=== PATIENT | male | born 1990 | race African-American/Black ===

== ENCOUNTER → 2019-01-11 | Emergency (ER) | payer MEDICAID ==
[~2019-01-11] VITALS: Ht 170.2 cm; Wt 100.0 kg
[2019-01-11 22:46] VITALS: Ht 170.2 cm; Wt 100.0 kg
--- NOTE | 2019-01-11 23:11 | ERD ---
ER Documentation Chief Complaint Chief Complaint states suicidal ideations HPI The patient is a 28-year-old male, presenting to the because of acute suicidal ideation, he does not have any plan. He was admitted to psychiatric hospital about a month ago, has not been taking his psychotropic medication for the last 2 weeks. He denies headache, auditory/visual hallucination, homicidal ideation, headache, neck pain, chest pain, dyspnea, abdominal pain, vomiting, dysuria, diarrhea. He smokes and drinks and does illicit drug amphetamine, he is homeless Past medical history: Schizophrenia, bipolar Past surgical history: None ROS All systems reviewed and are negative except as per history of present illness. Allergies Allergies: Coded Allergies: No Known Drug Allergies (Verified Allergy, Unknown, 01/11/19) Physical Exam Vitals Vital Signs Date Temp Pulse Resp B/P (MAP) Pulse Ox O2 O2 Flow FiO2 Time Delivery Rate 01/11/19 97.1 102 20 136/62 98 22:46 (86) Physical Exam Const: No acute distress. Unkempt Head: Atraumatic. Eyes: Normal Conjunctiva. ENT: Normal External Ears, Nose and Mouth. Neck: Full range of motion. No meningismus. Resp: Clear to auscultation bilaterally. Cardio: Regular rate and rhythm. Abd: Soft, non distended, normal bowel sounds, non tender. Skin: No petechiae or rashes. Back: No midline or flank tenderness. Ext: No cyanosis, or edema. Neur: Awake and alert. No focal deficit Psych: Suicidal Results 24 hrs Laboratory Tests Test 01/11/19 23:21 White Blood Count Pending Red Blood Count Pending Hemoglobin Pending Hematocrit Pending Mean Corpuscular Volume Pending Mean Corpuscular Hemoglobin Pending Mean Corpuscular Hemoglobin Concent Pending Red Cell Distribution Width Pending Platelet Count Pending Mean Platelet Volume Pending Procedures/MDM MEDICAL MAKING DECISION: The patient is a 28-year-old male, presenting with acute suicidal ideation The differential diagnoses considered include but are not limited to drug- induced psychosis, psychosis, medical noncompliance, decompensated psychiatric illness Departure Diagnosis: Primary Impression: Suicidal ideation Additional Impression: Substance abuse Condition: Stable Comments Labs are pending He is awaiting to be seen by telepsychiatrist SIERRA STEWART MD Jan 11, 2019 23:11
--- NOTE | 2019-01-12 00:50 | PSY ---
Date/Time of Note Date/Time of Note DATE: 01/12/19 TIME: 00:22 Psychiatric Subjective Eval Consent Pt consented to telemedicine: Yes Subjective Evaluation Patient location: emergency Chief Complaint: states suicidal ideations History of present illness He stated he hasn't taken any medications for two weeks and is hearing voices which he cannot make out. He also complained of racing thoughts. He stated his mood is "elevated and sometimes low" and complained of low energy. He reported a reasonable appetite. He is able to sleep OK at night. He reported he has thoughts about suicide "off and on" including earlier today when he had thoughts of "giving myself an injection." He stated he thought about using a syringe to inject motor oil into his veins. He denied any violent thoughts or urges. Past psychiatric history Stated he took Strattera and lithium and Seroquel 400mg qhs. He was admitted one month ago and was discharged on these medications but couldn't fill the prescription. Hospitalization: Suicidal Attempt(s) ("I think I tried to hang myself a month ago. I'm not too sure." ) Family History Schizophrenia - father. Medical history Problems Medical Problems: (1) Substance abuse Status: Acute (2) Suicidal ideation Status: Acute Allergies: Coded Allergies: No Known Drug Allergies (Verified Allergy, Unknown, 01/11/19) Substance Abuse Substance use: other (mAMP "I think yesterday." Marijuana earlier today. ) Substance abuse history: Yes Prior substance abuse treatmen: No Social History Marital status: single (000) DPA/Conservatorship: No Occupation/Intermediate: [employer] Psychiatric Objective Eval Mental Status Examination: Appearance: Disheveled Eye Contact: Fair Psychomotor Activity: Normal Behavior: Cooperative Speech: Clear, Soft AFFECT: Blunt Mood: Depressed Though Process: Linear Thought Content: Hallucinations Suicidal: Yes Homicidal: No On 72 hour hold: No Orientation: x3 Cognition: Alert Insight: Intact Judgement: Intact Attention Span: Intact Laboratory Results Laboratory Tests Test 01/11/19 23:21 01/11/19 23:22 White Blood Count 5.3 10^3/ul Red Blood Count 5.20 10^6/ul Hemoglobin 13.5 g/dl Hematocrit 42.5 % Mean Corpuscular Volume 81.7 fl Mean Corpuscular Hemoglobin 26.0 pg Mean Corpuscular Hemoglobin Concent 31.8 g/dl Red Cell Distribution Width 15.4 % Platelet Count 428 10^3/UL Mean Platelet Volume 9.7 fl Immature Granulocytes % 0.200 % Neutrophils % 43.4 % Lymphocytes % 36.7 % Monocytes % 16.3 % Eosinophils % 2.8 % Basophils % 0.6 % Nucleated Red Blood Cells % 0.0 /100WBC Immature Granulocytes # 0.010 10^3/ul Neutrophils # 2.3 10^3/ul Lymphocytes # 2.0 10^3/ul Monocytes # 0.9 10^3/ul Eosinophils # 0.2 10^3/ul Basophils # 0.0 10^3/ul Nucleated Red Blood Cells # 0.0 10^3/ul Urine Opiates Screen Negative Urine Barbiturates Negative Urine Amphetamines Screen POSITIVE Urine Benzodiazepines Screen Negative Urine Cocaine Screen Negative Urine Cannabinoids Negative Urine Color YELLOW Urine Clarity SLIGHTLY CLOUDY Urine pH 6.0 Urine Specific [place] 1.026 Urine Ketones TRACE mg/dL Urine Nitrite NEGATIVE mg/dL Urine Bilirubin NEGATIVE mg/dL Urine Urobilinogen 1+ mg/dL Urine Leukocyte Esterase NEGATIVE Michelle/ul Urine Microscopic RBC 1 /HPF Urine Microscopic WBC 3 /HPF Urine Mucus MODERATE /HPF Urine Hemoglobin NEGATIVE mg/dL Urine Glucose NEGATIVE mg/dL Urine Total Protein 1+ mg/dl Sodium Level 141 mmol/L Potassium Level 3.9 mmol/L Chloride Level 107 mmol/L Carbon Dioxide Level 22 mmol/L Anion Gap 12 Blood Urea Nitrogen 15 mg/dl Creatinine 1.03 mg/dl Est Glomerular Filtrat Rate mL/min > 60 mL/min Glucose Level 104 mg/dl Calcium Level 9.7 mg/dl Total Bilirubin 0.4 mg/dl Direct Bilirubin 0.00 mg/dl Indirect Bilirubin 0.4 mg/dl Aspartate Amino Transf (AST/SGOT) 31 IU/L Alanine Aminotransferase (ALT/SGPT) 23 IU/L Alkaline Phosphatase 71 IU/L Total Protein 7.7 g/dl Albumin 4.2 g/dl Globulin 3.50 g/dl Albumin/Globulin Ratio 1.20 Salicylates Level < 1.0 mg/dl Acetaminophen Level < 10.0 ug/ml Ethyl Alcohol Level < 10.0 mg/dl Assessment and Plan Assessment/Diagnosis Diagnosis Stimulant Use Disorder, Stimulant Induced Mood Disorder Recommendation/Plan Multiple antipsychotics: No Discharge Disposition: Psychiatric inpatient Legal Status: Voluntary HUGO ALMANZA MD Jan 12, 2019 00:34
[2019-01-12 06:37] VITALS: BP 130/78; PULSE 90; RESP 18
== END | disposition home or self-care (01) ==
LOC: E/R 22:40
DX: F15.10 Other stimulant abuse, uncomplicated (principal); Z59.0 Homelessness
CPT/HCPCS: 36415; 80053; 80307; 81001; 85025; Z7502; 99285

== ENCOUNTER 2019-02-09 20:10 | Emergency (ER) | payer MEDICAID ==
[~2019-02-09] VITALS: Ht 170.2 cm; Wt 99.6 kg
[2019-02-09 20:13] VITALS: Ht 170.2 cm; Wt 99.6 kg
--- NOTE | 2019-02-09 21:43 | ERD ---
ER Documentation Chief Complaint Chief Complaint stated he made a bomb and he will blow off his hand/body; denied HI HPI 28-year-old undomiciled male presents to the ED complaining of suicidal ideations and auditory command hallucinations to jump off a bridge. Patient told the triage nurse that he made abdominal blow of his hands and body but denies this currently. He denies any current drug or alcohol use. Otherwise asymptomatic. Denies headache, visual changes, focal weakness or numbness. No chest pain or palpitations. No abdominal pain, nausea vomiting. No fevers or chills. ROS All systems reviewed and are negative except as per history of present illness. Medications Home Meds Unable to Obtain Active Prescriptions or Reported Meds Allergies Allergies: Coded Allergies: No Known Drug Allergies (Verified Allergy, Unknown, 01/11/19) PMhx/Soc History of Surgery: No Anesthesia Reaction: No Hx Neurological Disorder: No Hx Respiratory Disorders: No Hx Cardiac Disorders: No Hx Psychiatric Problems: No Hx Miscellaneous Medical Probl: Yes (BIPOLAR DISORDER, SCHIZOPHRENIA) Hx Alcohol Use: Yes (OCCASIONAL) Hx Substance Use: Yes (METHAMPHETAMINE) Hx Tobacco Use: Yes FmHx No family history relevant to presenting complaint. Physical Exam Vitals Vital Signs Date Temp Pulse Resp B/P (MAP) Pulse Ox O2 O2 Flow FiO2 Time Delivery Rate 02/09/19 97.1 78 18 134/77 97 20:13 (96) Physical Exam Const: Moderate distress, anxious, poor hygiene Head: Atraumatic Eyes: Normal Conjunctiva ENT: Normal External Ears, Nose and Mouth. Neck: Full range of motion. Nontender. No meningismus. Resp: Clear to auscultation bilaterally Cardio: Regular rate and rhythm, no murmurs Abd: Soft, non tender, non distended. Normal bowel sounds Skin: No petechiae or rashes Back: No midline or flank tenderness Ext: No cyanosis, or edema Neur: Awake and alert. No focal deficit. Psych: Anxious, delusional, auditory hallucinations. Suicidal ideations. Result Diagram: 02/09/19219902/09/192199 Results 24 hrs Laboratory Tests Test 02/09/19 22:00 02/09/19 23:15 White Blood Count 4.7 10^3/ul Red Blood Count 4.91 10^6/ul Hemoglobin 12.8 g/dl Hematocrit 39.9 % Mean Corpuscular Volume 81.3 fl Mean Corpuscular Hemoglobin 26.1 pg Mean Corpuscular Hemoglobin Concent 32.1 g/dl Red Cell Distribution Width 14.5 % Platelet Count 457 10^3/UL Mean Platelet Volume 9.7 fl Immature Granulocytes % 0.200 % Neutrophils % % Segmented Neutrophils % (Manual) 26 % Lymphocytes % % Lymphocytes % (Manual) 59 % Reactive Lymphocytes % (Manual) 2 % Monocytes % % Monocytes % (Manual) 5 % Eosinophils % % Eosinophils % (Manual) 5 % Basophils % % Basophils % (Manual) 2 % Myelocytes % (Manual) 1 % Nucleated Red Blood Cells % 0.0 /100WBC Immature Granulocytes # 0.010 10^3/ul Neutrophils # 10^3/ul Lymphocytes (Manual) 2.7 10^3/ul Lymphocytes # 10^3/ul Reactive Lymphocytes # 0.0 10^3/ul Monocytes # 10^3/ul Monocytes # (Manual) 0.2 10^3/ul Eosinophils # 10^3/ul Basophils # 10^3/ul Basophils # (Manual) 0.0 10^3/ul Myelocytes # 0.0 10^3/ul Nucleated Red Blood Cells # 10^3/ul Platelet Estimate INCREASED Giant Platelets 3 % Polychromasia 3+ Poikilocytosis 1+ Anisocytosis 1+ Macrocytosis 1+ Sodium Level 139 mmol/L Potassium Level 3.6 mmol/L Chloride Level 106 mmol/L Carbon Dioxide Level 26 mmol/L Anion Gap 7 Blood Urea Nitrogen 16 mg/dl Creatinine 1.01 mg/dl Est Glomerular Filtrat Rate mL/min > 60 mL/min Glucose Level 88 mg/dl Calcium Level 9.2 mg/dl Total Bilirubin 0.4 mg/dl Direct Bilirubin 0.00 mg/dl Indirect Bilirubin 0.4 mg/dl Aspartate Amino Transf (AST/SGOT) 55 IU/L Alanine Aminotransferase (ALT/SGPT) 47 IU/L Alkaline Phosphatase 78 IU/L Total Protein 7.4 g/dl Albumin 4.2 g/dl Globulin 3.20 g/dl Albumin/Globulin Ratio 1.31 Salicylates Level < 1.0 mg/dl Acetaminophen Level < 10.0 ug/ml Ethyl Alcohol Level < 10.0 mg/dl Urine Color YELLOW Urine Clarity SLIGHTLY CLOUDY Urine pH 5.0 Urine Specific [place] 1.023 Urine Ketones TRACE mg/dL Urine Nitrite NEGATIVE mg/dL Urine Bilirubin NEGATIVE mg/dL Urine Urobilinogen NEGATIVE mg/dL Urine Leukocyte Esterase 3+ Michelle/ul Urine Microscopic RBC 10 /HPF Urine Microscopic WBC 72 /HPF Urine Squamous Epithelial Cells FEW /HPF Urine Bacteria FEW /HPF Urine Mucus MODERATE /HPF Urine Hemoglobin 1+ mg/dL Urine Glucose NEGATIVE mg/dL Urine Total Protein 1+ mg/dl Urine Opiates Screen Negative Urine Barbiturates Negative Urine Amphetamines Screen POSITIVE Urine Benzodiazepines Screen Negative Urine Cocaine Screen Negative Urine Cannabinoids Negative Procedures/MDM DOCUMENTS REVIEWED: ED nurse, prior ED visit December for suicidal ideations CONSULTATIONS: Dr Dubon, telehealth psychiatry recommends psychiatric admission and involuntary hold and psychiatric admission. No medication recommendations at this time. MEDICAL DECISION MAKIN-year-old undomiciled male presents to the ED complaining of suicidal ideations and auditory command hallucinations to jump off a bridge. Patient presents with symptomatology consistent with decompensation of previously diagnosed psychiatric disease. Based on history, physical exam and appropriate lab tests, I appreciate no evidence of significant life threatening injury or illness that precludes psychiatric hospitalization. There are no toxic, infectious, metabolic, [employer]EL[employer] or other unstable co-morbidities. Patient is thus medically clear for psychiatric evaluation. Telehealth psychiatry evaluation by Dr. Dubon who recommends involuntary hold. Endorsed to Dr. Tellez pending PET evaluation and placement Departure Diagnosis: Primary Impression: Suicidal ideation Additional Impressions: Psychosis Psychosis type: unspecified psychosis type Qualified Codes: F29 - Unspecified psychosis not due to a substance or known physiological condition Stimulant abuse Condition: Serious PETR ROSE MD Feb 09, 2019 21:43
--- NOTE | 2019-02-09 23:34 | PSY ---
Date/Time of Note Date/Time of Note DATE: 02/09/19 TIME: 23:26 Psychiatric Subjective Eval Consent Pt consented to telemedicine: Yes Subjective Evaluation Patient location: emergency Chief Complaint: stated he made a bomb and he will blow off his hand/body; denied HI Reason for consult: Per RN: He stated he was hearing voices and reported suicidal ideation. History of present illness He stated, "I was hearing voices" which started yesterday afternoon. He said the voices are saying "to give power back to the strippers." He stated his mood has been "a little off" as he hasn't taken his medication (lithium, Seroquel, Strattera) for the past 1 1/2 weeks. When asked about the pipe bomb he stated, "Yeah I was going to blow up my pipe bomb contestants" and gave the names of several of his friends. He stated, "One of these disco spider children took it from me." He stated today he started having thoughts about wanting to kill himself. When asked about his plan he stated, "moving." He later said he wanted to go into traffic. Past psychiatric history Prescribed lithium, Seroquel, Strattera but hasn't taken them for 1 1/2 years. Hospitalization: yes Family History Father - Schizophrenia Medical history Problems Medical Problems: (1) Substance abuse Status: Acute (2) Suicidal ideation Status: Acute Allergies: Coded Allergies: No Known Drug Allergies (Verified Allergy, Unknown, 01/11/19) Substance Abuse Substance use: other Substance abuse history: Yes (Recent mAMP use) Prior substance abuse treatmen: No Social History Marital status: single DPA/Conservatorship: No Occupation/Snf: Homeless, no consistent income Psychiatric Objective Eval Physical Examination: Physical Examination: Not Applicable Mental Status Examination: Appearance: Disheveled Eye Contact: Fair Psychomotor Activity: Normal Behavior: Cooperative Speech: Soft, Disorganized AFFECT: Blunt Mood: Other ("A little off.") Though Process: Illogical Thought Content: Delusions (Stated "disco spider children" took his pipe bomb away), Hallucinations Suicidal: Yes Homicidal: Yes (Made a confusing statement about using a pipe bomb on certain friends) On 72 hour hold: No Orientation: x2 Cognition: Drowsy Insight: Impared Judgement: Impared Attention Span: Intact Laboratory Results Laboratory Tests Test 02/09/19 22:00 White Blood Count 4.7 10^3/ul Red Blood Count 4.91 10^6/ul Hemoglobin 12.8 g/dl Hematocrit 39.9 % Mean Corpuscular Volume 81.3 fl Mean Corpuscular Hemoglobin 26.1 pg Mean Corpuscular Hemoglobin Concent 32.1 g/dl Red Cell Distribution Width 14.5 % Platelet Count 457 10^3/UL Mean Platelet Volume 9.7 fl Immature Granulocytes % 0.200 % Neutrophils % % Segmented Neutrophils % (Manual) 26 % Lymphocytes % % Lymphocytes % (Manual) 59 % Reactive Lymphocytes % (Manual) 2 % Monocytes % % Monocytes % (Manual) 5 % Eosinophils % % Eosinophils % (Manual) 5 % Basophils % % Basophils % (Manual) 2 % Myelocytes % (Manual) 1 % Nucleated Red Blood Cells % 0.0 /100WBC Immature Granulocytes # 0.010 10^3/ul Neutrophils # 10^3/ul Lymphocytes (Manual) 2.7 10^3/ul Lymphocytes # 10^3/ul Reactive Lymphocytes # 0.0 10^3/ul Monocytes # 10^3/ul Monocytes # (Manual) 0.2 10^3/ul Eosinophils # 10^3/ul Basophils # 10^3/ul Basophils # (Manual) 0.0 10^3/ul Myelocytes # 0.0 10^3/ul Nucleated Red Blood Cells # 10^3/ul Platelet Estimate INCREASED Giant Platelets 3 % Polychromasia 3+ Poikilocytosis 1+ Anisocytosis 1+ Macrocytosis 1+ Sodium Level 139 mmol/L Potassium Level 3.6 mmol/L Chloride Level 106 mmol/L Carbon Dioxide Level 26 mmol/L Anion Gap 7 Blood Urea Nitrogen 16 mg/dl Creatinine 1.01 mg/dl Est Glomerular Filtrat Rate mL/min > 60 mL/min Glucose Level 88 mg/dl Calcium Level 9.2 mg/dl Total Bilirubin 0.4 mg/dl Direct Bilirubin 0.00 mg/dl Indirect Bilirubin 0.4 mg/dl Aspartate Amino Transf (AST/SGOT) 55 IU/L Alanine Aminotransferase (ALT/SGPT) 47 IU/L Alkaline Phosphatase 78 IU/L Total Protein 7.4 g/dl Albumin 4.2 g/dl Globulin 3.20 g/dl Albumin/Globulin Ratio 1.31 Salicylates Level < 1.0 mg/dl Acetaminophen Level < 10.0 ug/ml Ethyl Alcohol Level < 10.0 mg/dl Assessment and Plan Assessment/Diagnosis Diagnosis Unspecified Psychosis, Stimulant Abuse Recommendation/Plan Multiple antipsychotics: No Discharge Disposition: Psychiatric inpatient Legal Status: Place involuntary hold Other Recommend admission for psychosis and DTS plus possible DTO HUGO ALMANZA MD Feb 09, 2019 23:34
[2019-02-10 20:04] VITALS: BP 143/81; PULSE 71; RESP 17
== END 2019-02-10 20:06 ==
LOC: E/R 20:10
DX: F29 Unspecified psychosis not due to a substance or known physiological condition (principal); R40.2142 Coma scale, eyes open, spontaneous, at arrival to emergency department; R40.2252 Coma scale, best verbal response, oriented, at arrival to emergency department; R40.2362 Coma scale, best motor response, obeys commands, at arrival to emergency department; Z87.891 Personal history of nicotine dependence
CPT/HCPCS: 36415; 80053; 80307; 81001; 85025; Z7502

== ENCOUNTER 2019-04-30 18:02 | Emergency (ER) | payer MEDICAID ==
[~2019-04-30] VITALS: Ht 170.2 cm; Wt 91.0 kg
[2019-04-30 18:07] VITALS: Ht 170.2 cm; Wt 91.0 kg
[2019-05-01 07:44] VITALS: BP 117/64; PULSE 66; RESP 14
== END 2019-05-01 09:17 ==
LOC: E/R 18:02
DX: F29 Unspecified psychosis not due to a substance or known physiological condition (principal); R40.2142 Coma scale, eyes open, spontaneous, at arrival to emergency department; F17.210 Nicotine dependence, cigarettes, uncomplicated; R40.2362 Coma scale, best motor response, obeys commands, at arrival to emergency department; R40.2252 Coma scale, best verbal response, oriented, at arrival to emergency department; F15.10 Other stimulant abuse, uncomplicated
CPT/HCPCS: 36415; 80053; 80307; 81001; 85025; Z7502; 81003